=== PATIENT | male | born 1935 | race Caucasian/White ===

== ENCOUNTER → 2017-08-01 | Outpatient (CLI) | payer BC, OTHER ==
[~2017-08-01] MED LIST: ACYCLOVIR 400400 MG PO; ASPIRIN EC325 MG PO; CLONAZEPAM 0.50.5 M1 PO; COLACE100 MG PO; DILTIAZEM ER120 MG PO; FLOMAX0.4 MG PO; LODINE XL400 MG PO; MIRALAX17 GM PO; PRADAXA150 MG PO; PRILOSEC20 MG PO; PROCTOZONE-HC30 GM RECTAL; TYLENOL325 MG PO
== END ==
LOC: M.RAD 12:04
DX: M47.816 Spondylosis without myelopathy or radiculopathy, lumbar region (principal); M48.56XA Collapsed vertebra, not elsewhere classified, lumbar region, initial encounter for fracture; M41.86 Other forms of scoliosis, lumbar region; M12.88 Other specific arthropathies, not elsewhere classified, other specified site

== ENCOUNTER → 2017-09-05 | Outpatient (CLI) | payer BC | LOC: M.CT 10:41 | DX: J43.9 Emphysema, unspecified (principal); J47.9 Bronchiectasis, uncomplicated; R91.8 Other nonspecific abnormal finding of lung field ==